=== PATIENT | male | born 1955 | race Caucasian/White ===

== ENCOUNTER 2023-11-13 05:58 | Day surgery (SDC) | payer MEDICARE, OTHER, SELFPAY ==
[2023-11-13] VITALS (8 sets, daily range): BP systolic 88–117; BP diastolic 64–73; BMI 25.1
[2023-11-13 08:18] LABS: ACT-LR - POC 319 Seconds (116-155)
[2023-11-13 08:36] LABS: ACT-LR - POC 351 Seconds (116-155)
[2023-11-13 08:58] LABS: ACT-LR - POC 322 Seconds (116-155)
--- NOTE | 2023-11-13 09:21 | ITS.CL.ABL ---
Safety Sitter - Ablation
Ablation
Procedure Report:
ELECTROPHYSIOLOGIC STUDY AND POSSIBLE ABLATION
DATE: November 13, 2023
Primary Care Provider: Dr. Mode Zurita
Primary Paste Thinner: Dr. Fuentes
INDICATION:
Symptomatic Atrial Fibrillation.
Persistent
HISTORY: See H and P.
Symptomatic AF, poorly controlled with attempted medical therapy
HAS- 1BLED:
Age
CHADSVASc: 1
Age
PRESENTING RHYTHM: AF
HISTORY: See H and P.
Symptomatic AF, poorly controlled with attempted medical therapy.
ANTICOAGULATION: Rivaroxaban
'TIME-OUT': called and confirmed.
SEDATION/ANESTHESIA: provided via the anesthesia department using general anesthesia.
PROCEDURE:
Ultrasound Guidance performed by id was utilized for femoral venous Vascular Access b/l.
A decapolar CS catheter was placed within the CS for mapping and pacing.
The intracardiac ultrasound catheter was positioned in the RA for continuous intracardiac ultrasound imaging.
Heparin bolus and infusion to target ACT at 300 -350 seconds was administered. Transseptal puncture was performed. This entailed advancing a sheath with dilator into the superior vena cava and withdrawing both (monitoring intracardiac ultrasound,
fluoroscopy and tip pressure) with the tip oriented toward the atrial septum. The fossa ovalis was engaged (indicated by sudden displacement of the sheath tip as well as tenting of the fossa seen on intracardiac ultrasound).
AcRe2you transseptal system was used. Left atrial catheter position was confirmed by echocardiographic imaging, pressure monitoring (LA mean pressure 12 mm Hg) and fluoroscopy. The sheath was advanced over the dilator and positioned in the left
atrium.
The multipolar mapping catheter was initially positioned through the transseptal sheath for high density mapping.
Geometry and voltage mapping was performed using the [employer] multipolar grid catheter. Navex was utilized for three-dimensional electroanatomical mapping.
A 3-D map was created using Navex. A 3-D reconstructed CT image was compared to the 3-D Navex map to assist in anatomic evaluation, mapping and ablation.
The [employer] Pulse Select PFA catheter and system was used for cardiac ablation. Catheter positioning was guided and confirmed using both I.C.E. and fluoroscopy.
PV isolation approach was used to electrically isolate each PV ostia.
Remapping with the [employer] multipolar grid catheter found that all PVPs were eliminated at each vein demonstrating entrance block. Also pacing from the multipolar mapping catheter around the the circumference of the ostia was performed at 10 ma and
2.0 msec output to assess for exit block. This demonstrated electrical isolation at each of the pulmonary vein ostia LSPV, LIPV, RSPV, RIPV.
There is marked fractionation of the posterior wall of the left atrium and the left atrium is significantly dilated. Additional energy applications/additional ablation set was required to accomplish wide area circumferential ablation around each of
the pulmonary vein sets and further additional ablation set was performed to isolate the posterior wall of the left atrium.
After completion of ablation, cardioversion restored sinus rhythm and repeat mapping with the [employer] multipolar grid catheter finds electrical isolation of all 4 pulmonary veins and the posterior wall of the left atrium. Pacing was performed to
demonstrate the presence of exit block as well from all 4 pulmonary veins as well as the posterior wall of the left atrium.
Programmed electrical stimulation then failed to induce any sustained arrhythmias.
I.C.E. :
Pre-Ablation Post-Ablation
LVEF: 50 % 50 %
WMA: none none
Pericardial effusion: none none
*Note that intracardiac echocardiogram demonstrates biatrial enlargement.
COMPLICATIONS:
none
SUMMARY:
- Mapping and ablation to isolate the PVs
- Additional AF ablation set after PVI.
- 3-D Electroanatomical Mapping
- Intracardiac Ultrasound
Post ablation, I called the patient's daughter Josephine and left a voice message regarding today's findings and results.
RECOMMENDATIONS:
- Observe in monitored bed.
- Maintain oral anticoagulation.
- Office visit with me in 3-4 months.
- Continue cardiovascular care with Dr. Fuentes
Copy to:
Dr. Mode Zurita
Dr. Fuentes
[2023-11-13] MEDS: ANESTHETIC LOZENGE 1 LOZENGE PO (10:36)
[2023-11-13] MEDS: TYLENOL 650 MG PO (10:36)
--- NOTE | 2023-11-13 12:07 | W.PN.UPDATE ---
Update Note
Progress Note Update
Pt seen post PFA. Right femoral vein with vascade closure, no ht/bleeding, non tender. OOB ambulating, urinating without difficulty. Post EKG NSR 67, no acute changes. Resume xarelto tonight, continue other meds as before. Followup with
Rosita arranged and with Dr. Fuentes thereafter. Home today if groin site/tele remain stable.
== END 2023-11-13 12:00 | disposition home or self-care (01) ==
LOC: CATH 05:58
PROVIDERS: ATTENDING PHYSICIAN Internal Medicine Cardiovascular Disease; FAMILY PHYSICIAN Family Medicine; OTHER PHYSICIAN Internal Medicine Cardiovascular Disease
DX: I48.19 Other persistent atrial fibrillation (principal); Z79.01 Long term (current) use of anticoagulants; Z79.899 Other long term (current) drug therapy; K90.0 Celiac disease; Z87.891 Personal history of nicotine dependence; Z90.49 Acquired absence of other specified parts of digestive tract; D68.59 Other primary thrombophilia; R00.2 Palpitations
CPT/HCPCS: C1732; C1894; C1733; C1769; C1730; C1892; C1759; 76937; 85347; 86900; 86901; 93005; 93656; 93657; C1760

== ENCOUNTER → 2024-09-11 07:22 | Outpatient (REF) | payer MEDICARE, OTHER, SELFPAY | LOC: RAD 07:22 | PROVIDERS: ATTENDING PHYSICIAN Internal Medicine Rheumatology; FAMILY PHYSICIAN Family Medicine | DX: M35.3 Polymyalgia rheumatica (principal); M81.0 Age-related osteoporosis without current pathological fracture | CPT/HCPCS: 77080 ==